=== PATIENT | female | born 1985 | race Caucasian/White ===

== ENCOUNTER 2017-03-19 04:45 | Emergency (ER) | payer SELFPAY ==
--- NOTE | 2017-03-19 05:19 | ER Document Report ---
ED Headache - General Chief Complaint: Headache Stated Complaint: HEADACHE Time Seen by Provider: 03/19/17 05:19 TRAVEL OUTSIDE OF THE [place] IN LAST 30 DAYS: No - Related Data Allergies/Adverse Reactions: No Known Allergies Allergy (Unverified 04/29/11 20:03) Past Medical History - Social History Smoking Status: Never Smoker Chew tobacco use (# tins/day): No Frequency of alcohol use: None Drug Abuse: None Patient has suicidal ideation: No Patient has homicidal ideation: No Renal/ Medical History: Denies: Hx Peritoneal Dialysis - Immunizations Hx Diphtheria, Pertussis, Tetanus Vaccination: No Physical Exam - Vital signs Vitals: Temp Pulse Resp BP Pulse Ox 98.2 F 86 18 145/86 H 99 03/19/17 04:45 03/19/17 04:45 03/19/17 04:45 03/19/17 04:45 03/19/17 04:45 Course - Vital Signs Vital signs: Temp Pulse Resp BP Pulse Ox 98.2 F 86 18 145/86 H 99 03/19/17 04:45 03/19/17 04:45 03/19/17 04:45 03/19/17 04:45 03/19/17 04:45
[2017-03-19] MEDS ORDERED: METOCLOPRAMIDE HCL INJ/PF 10 MG/2 ML SDV IV ONE (05:22)
[2017-03-19] MEDS ORDERED: DIPHENHYDRAMINE HCL 50 MG/ML VIAL IV ONE (05:22)
--- NOTE | 2017-03-19 05:25 | ER Document Report ---
Doctor's Note Notes: 03/19/17 05:23 I performed a quick triage evaluation the patient. Patient is a 31-year-old female who presents with complaint of a headache. She has a long history of migraines. She has not yet seen a neurologist about them. She says she has been having migraines since she was a teenager. She said her headache started 3 days ago. She said the first of like her typical migraine however the headache continued to occur. She says that today she was taken her head in warm water and then took her head out the warm water. She then turned to talk to her she felt a pop in her neck and started on fluid draining down the back of her throat. She said she even had some pulmonary clear fluid draining from her nose. She says she still feels as if fluid is draining down the back of her throat. She said she had some intermittent numbness in both hands and also on both sides of her feet. No focal weakness. She has a large amount photophobia. No recent fevers or infections. No other complaints at this time. Will order a CT scan of the head start with. I will also order order medications to help treat the headache. Patient has no current drainage coming from her nose and therefore I cannot test drainage for CSF fluid. Patient's cranial nerves II through XII are intact. She has good distal sensation moves all extremities well. Normal Romberg testing. She has a large amount of photophobia during exam is keeping her eyes closed as often as possible. Further treatment and workup will be determined by the oncoming physician. 03/19/17 05:24 03/19/17 05:35
[2017-03-19 06:15] LABS: ABSOLUTE BASOPHILS # (AUTO) 0.1 10^3/uL (0.0-0.2); ABSOLUTE EOSINOPHILS # (AUTO) 0.1 10^3/uL (0.0-0.6); ABSOLUTE MONOCYTES (AUTO) 0.4 10^3/uL (0.1-1.4); ABSOLUTE NEUT (AUTO) 3.7 10^3/uL (1.7-8.2); BASOPHILS % (AUTO) 1.1 % (0-2); EOSINOPHILS % (AUTO) 2.2 % (0-6); HEMATOCRIT 42.9 % (36.0-47.0); HEMOGLOBIN 14.8 g/dL (12.0-15.5); HGB HCT DIFFERENCE 1.5; LYMPHOCYTES % (AUTO) 31.1 % (13-45); MEAN CORPUSCULAR HEMOGLOBIN 32.1 pg (27.0-33.4); MEAN CORPUSCULAR HGB CONC 34.5 g/dL (32.0-36.0); MEAN CORPUSCULAR VOLUME 93 fl (80-97); MONOCYTES % (AUTO) 6.6 % (3-13); RED BLOOD COUNT 4.62 10^6/uL (3.72-5.28); RED CELL DISTRIBUTION WIDTH 13.1 % (11.5-14.0); WHITE BLOOD COUNT 6.3 10^3/uL (4.0-10.5)
--- NOTE | 2017-03-19 06:23 | RADIOLOGY REPORT (SQ) ---
EXAM DESCRIPTION: CT HEAD WITHOUT COMPLETED DATE/TIME: 03/19/2017 6:10 am REASON FOR STUDY: headache COMPARISON: None. TECHNIQUE: Axial images acquired through the brain without intravenous contrast. Images reviewed wi th bone, brain and subdural windows. Images stored on PACS. All CT scanners at this facility use dose modulation, iterative reconstruction, and/or weight based d osing when appropriate to reduce radiation dose to as low as reasonably achievable (ALARA). [facility]: Dose Right [facility]: CareDose [facility]: Dose Right [facility]: Teradose 4D [facility]: Knodium RADIATION DOSE: mGy. LIMITATIONS: None. FINDINGS: VENTRICLES: Normal size and contour. CEREBRUM: No mass effect. No hemorrhage. No midline shift. Normal cohen/white matter differentiatio n. No evidence for acute territorial infarction. CEREBELLUM: No mass effect. No hemorrhage. No alteration of density. No evidence for acute infarct ion. EXTRAAXIAL SPACES: No fluid collections. ORBITS AND GLOBE: Symmetrical contour of the globes. CALVARIUM: No depressed skull fracture. PARANASAL SINUSES: No air-fluid level. SOFT TISSUES: No hematoma. IMPRESSION: No acute intracranial hemorrhage or acute territorial infarct. EVIDENCE OF ACUTE STROKE: NO. COMMENT: Quality ID # [id number]: Final reports with documentation of one or more dose reduction techniques (e.g., Automated exposure control, adjustment of the mA and/or kV according to patient size, use of iterative reconstruction technique) TECHNICAL DOCUMENTATION: JOB ID: [id number] 2010 [employer]- All Rights Reserved
--- NOTE | 2017-03-19 06:26 | ER Document Report ---
ED Headache <JOAN GLEZ - Last Filed: 03/19/17 08:02> - General Mode of Arrival: Ambulatory Information source: Patient TRAVEL OUTSIDE OF THE [place] IN LAST 30 DAYS: No <DIO COLON - Last Filed: 03/19/17 08:24> - General Chief Complaint: Headache Stated Complaint: HEADACHE Time Seen by Provider: 03/19/17 05:19 Notes: Patient is a 31 year old female that presents to the emergency department today with complaints of a headache which began 3 days ago. Patient states that her headache started as a typical migraine for her which is localized behind her right eye. Patient states yesterday at about 1700 the headache moved to the back of her head. Patient states she took a warm back and soaked her head which relieved some of the pressure she was experiencing. Patient states that after getting out of the bath she turned her head to speak to someone and heard a pop on the right side of her neck. Patient mentions feeling "fluid going down the back of her throat" after her neck popped. Patient states that she is currently on her period and the bleeding is much heavier than normal. Patient is photophobic. (DIO COLON) - Related Data Allergies/Adverse Reactions: No Known Allergies Allergy (Unverified 04/29/11 20:03) Past Medical History - General Information source: Patient - Social History Smoking Status: Never Smoker Cigarette use (# per day): No Chew tobacco use (# tins/day): No Frequency of alcohol use: None Drug Abuse: None Lives with: Family Family History: Reviewed & Not Pertinent Patient has suicidal ideation: No Patient has homicidal ideation: No Neurological Medical History: Reports: Hx Migraine Surgical Hx: Negative - Immunizations Hx Diphtheria, Pertussis, Tetanus Vaccination: No <DIO COLON - Last Filed: 03/19/17 08:24> Review of Systems - Review of Systems Constitutional: denies: Fever EENT: No symptoms reported Cardiovascular: No symptoms reported Respiratory: No symptoms reported Gastrointestinal: No symptoms reported Genitourinary: No symptoms reported Female Genitourinary: See HPI, Last menstrual period - currently on period, Vaginal bleeding Musculoskeletal: No symptoms reported Skin: No symptoms reported Hematologic/Lymphatic: No symptoms reported Neurological/Psychological: See HPI, Headaches, Other - photophobia -: Yes All other systems reviewed and negative <DIO COLON - Last Filed: 03/19/17 08:24> Physical Exam <JOAN GLEZ - Last Filed: 03/19/17 08:02> <DIO COLON - Last Filed: 03/19/17 08:24> - Vital signs Vitals: Temp Pulse Resp BP Pulse Ox 98.2 F 86 18 145/86 H 99 03/19/17 04:45 03/19/17 04:45 03/19/17 04:45 03/19/17 04:45 03/19/17 04:45 - Notes Notes: Physical Exam: General: Alert, appears uncomfortable. HEENT: Normocephalic. Atraumatic. PERRL. Extraocular movements intact. Oropharynx clear. Right posterior cervical musculature tenderness with palpation. TMs are clear bilaterally. Neck: Supple. Non-tender. Respiratory: No respiratory distress. Clear and equal breath sounds bilaterally. Cardiovascular: Regular rate and rhythm. Abdominal: Obese. Non-tender. No distension. Normal Bowel Sounds. Back: Non-tender. No deformity or step off. Extremities: Moves all four extremities. Upper extremities: Normal inspection. Normal ROM. Lower extremities: Normal inspection. No edema. Normal ROM. Neurological: Normal cognition. AAOx4. Normal speech. Positive photophobia. Psychological: Normal affect. Normal Mood. Skin: Warm. Dry. Normal color. (DARLENE,DIO) Course - Laboratory Result Diagrams: 03/19/17 05:56 03/19/17 06:20 - Diagnostic Test Radiology reviewed: Image reviewed, Reports reviewed - CT scan of the head does not show an acute process. - EKG Interpretation by Me EKG shows normal: Sinus rhythm, [place], Intervals, QRS Complexes, ST-T Waves Rate: Normal - 71 Rhythm: NSR P Waves: FARHEEN, LAE <NEWTONJOAN - Last Filed: 03/19/17 08:02> - Laboratory Result Diagrams: 03/19/17 05:56 03/19/17 06:20 <DIO COLON - Last Filed: 03/19/17 08:24> - Re-evaluation Re-evalutation: 03/19/17 08:02 The patient reports that the right posterior neck pain and her headache are much improved now after the Toradol. I have explained that I think this is a migraine headache that is a little more persistent and worse than usual. She also probably had a acute strain to her right posterior neck muscles when she lifted her head and felt a pop. I cannot explain the sensation of fluid running down the back of her throat that she has been experiencing. (JOAN GLEZ) - Vital Signs Vital signs: Temp Pulse Resp BP Pulse Ox 98.2 F 86 18 145/86 H 99 03/19/17 04:45 03/19/17 04:45 03/19/17 04:45 03/19/17 04:45 03/19/17 04:45 - Laboratory Laboratory results interpreted by me: 03/19/17 06:20 Chloride 109 H Carbon Dioxide 21 L Discharge <JOAN GLEZ - Last Filed: 03/19/17 08:02> <DIO COLON - Last Filed: 03/19/17 08:24> - Discharge Clinical Impression: Migraine headache Qualifiers: Migraine type: unspecified Status migrainosus presence: without status migrainosus Intractability: not intractable Qualified Code(s): G43.909 - Migraine, unspecified, not intractable, without status migrainosus Posterolateral cervical muscle strain Qualifiers: Encounter type: initial encounter Qualified Code(s): S16.1XXA - Strain of muscle, fascia and tendon at neck level, initial encounter Additional Instructions: Cervical Strain/Torticollis: At this time you seem to have an acute strain of the right posterior cervical neck muscles. You MAY develop torticollis, often called "wry neck." This is due to spasm of neck muscles. Many different problems can lead to torticollis, such as a minor injury, sleeping with tension on the neck, or inflammation in the glands of the neck. Torticollis is usually treated with heat to relax the neck muscles, but the physician may recommend cold packs if a minor injury is suspected as the cause. Muscle relaxing and antiinflammatory medicine are often prescribed. You may need a neck collar to support your head. Improvement is usually rapid. Usually, the neck can be moved fully within two days, although some pain may persist for a few weeks. Call the doctor at once if you worsen, or if you develop high fever, severe headache, numbness or weakness, or other alarming symptoms. Migraine Headache: The physician feels that your symptoms are due to a migraine attack. Migraines are caused by changes in the blood vessels of the head. Arteries go into spasm, often causing warning symptoms that a headache may begin soon. As the spasm goes away, the vessels dilate and throb, causing the pounding pain of a migraine headache. Migraines often cause nausea and vomiting. The treatment of headaches varies with severity and cause of pain. Not all headaches need pain shots -- in fact, there is evidence that using narcotics for headaches may make them worse in the long run. The physician will determine the therapy that's in your best interest for this particular headache. Medications are available that may prevent migraines, or stop them as they first occur. If one medication is not helpful, try another. If migraines are frequent, be patient -- follow the doctor's recommendations. Call the physician if you are worsening, or if new symptoms arise. CONTINUE YOUR REGULAR MEDICATIONS. REST. USE MOIST HEAT AND/OR ICE-PACKS TO THE PAINFUL MUSCLES. TAKE IBUPROFEN OR ALEVE FOR THE INFLAMMATION PAIN. FOLLOW UP WITH A LOCAL MEDICAL DOCTOR IF NOT IMPROVING. RETURN TO THE EMERGENCY ROOM IF ANY NEW OR WORSENING SYMPTOMS. Scribe Attestation: 03/19/17 08:08 I personally performed the services described in the documentation, reviewed and edited the documentation which was dictated to the scribe in my presence, and it accurately records my words and actions. (JOAN GLEZ) Scribe Documentation - Scribe Written by Marcelo:: Marcelo Rojas, 03/19/2017 0710 acting as scribe for :: Newton <DIO COLON - Last Filed: 03/19/17 08:24>
[2017-03-19] MEDS ORDERED: KETOROLAC TROMETHAMINE INJ/PF 30 MG/1 ML SDV IV ONE ×2 (06:28→07:32)
[2017-03-19] MEDS ORDERED: NORMAL SALINE 1000 ML 1,000 ML IV ONE (06:28)
[2017-03-19 06:40] LABS: ANION GAP 13 (5-19); BLOOD UREA NITROGEN 8 mg/dL (7-20); CALCIUM 9.3 mg/dL (8.4-10.2); CARBON DIOXIDE 21 mmol/L (22-30); CHLORIDE 109 mmol/L (98-107); CREATININE RESULT 0.72 mg/dL (0.52-1.25); GLUCOSE 102 mg/dL (75-110); POTASSIUM 4.1 mmol/L (3.6-5.0); SODIUM 142.9 mmol/L (137-145)
[2017-03-19 08:15] VITALS: BP 133/84
== END 2017-03-19 08:15 | disposition home or self-care (01) ==
LOC: ER 04:45
DX: S16.1XXA Strain of muscle, fascia and tendon at neck level, initial encounter (principal); G43.909 Migraine, unspecified, not intractable, without status migrainosus; M54.2 Cervicalgia; X50.9XXA Other and unspecified overexertion or strenuous movements or postures, initial encounter
CPT/HCPCS: 99284; 96361; 96374; 96375; 36415; 84703; 85025; 80048; 70450; J1200; J1885; J2765; J7030